=== PATIENT | female | born 1970 | race Caucasian/White ===

== ENCOUNTER 2019-01-27 14:19 | Outpatient (CLI) | payer OTHER | END 2019-01-27 16:19 | disposition home or self-care (01) | LOC: ECT 14:19 | DX: F33.2 Major depressive disorder, recurrent severe without psychotic features (principal); F41.9 Anxiety disorder, unspecified; E03.9 Hypothyroidism, unspecified; J30.9 Allergic rhinitis, unspecified; Z79.899 Other long term (current) drug therapy; Z81.8 Family history of other mental and behavioral disorders; Z91.5 Personal history of self-harm ==

== ENCOUNTER 2019-01-30 04:34 | Outpatient (RCR) | payer OTHER ==
[~2019-01-30] VITALS: Ht 162.6 cm; Wt 64.4 kg
[2019-01-30] MEDS ORDERED: NS 500ML ONE (04:35)
[2019-01-30] MEDS ORDERED: Methohexital Sodium Syr 100mg/10ml IVP ONE (04:35)
[2019-01-30] MEDS ORDERED: Succinylcholine 20mg/ml 10ml vial ONE (04:35)
[2019-02-06] MEDS ORDERED: NS 500ML ONE (06:00)
[2019-02-06] MEDS ORDERED: Methohexital Sodium Syr 100mg/10ml IVP ONE (06:00)
[2019-02-06] MEDS ORDERED: Succinylcholine 20mg/ml 10ml vial ONE (06:00)
[2019-02-06 09:09] VITALS: BP 114/78
[2019-02-06 09:20] VITALS: BP 119/67
[2019-02-06 09:25] VITALS: BP 124/78
[2019-02-06 09:30] VITALS: BP 128/67
[2019-02-06 09:35] VITALS: BP 130/58
[2019-02-06 09:58] VITALS: BP 114/78
[2019-02-09] MEDS ORDERED: NS 500ML ONE (06:00)
[2019-02-09] MEDS ORDERED: Methohexital Sodium Syr 100mg/10ml IVP ONE (06:00)
[2019-02-09] MEDS ORDERED: Succinylcholine 20mg/ml 10ml vial ONE (06:00)
[2019-02-09 09:27] VITALS: BP 113/74
[2019-02-09 09:40] VITALS: BP 119/63
[2019-02-09 09:45] VITALS: BP 128/69
[2019-02-09 09:50] VITALS: BP 133/83
[2019-02-09 09:55] VITALS: BP 128/71
[2019-02-11] MEDS ORDERED: Methohexital Sodium Syr 100mg/10ml IVP ONE (06:00)
[2019-02-11] MEDS ORDERED: Midazolam 2mg/2ml Inj ONE (06:00)
[2019-02-11] MEDS ORDERED: Succinylcholine 20mg/ml 10ml vial ONE (06:00)
[2019-02-11] MEDS ORDERED: NS 500ML ONE (06:00)
[2019-02-11 09:26] VITALS: BP 105/76
[2019-02-11 09:41] VITALS: BP 122/66
[2019-02-11 09:46] VITALS: BP 120/70
[2019-02-11 09:51] VITALS: BP 108/71
[2019-02-11 09:56] VITALS: BP 121/62
[2019-02-13 08:43] VITALS: BP 100/74
[2019-02-13 09:00] VITALS: BP 129/73
[2019-02-13 09:05] VITALS: BP 126/65
[2019-02-13 09:10] VITALS: BP 121/62
[2019-02-13 09:15] VITALS: BP 124/64
[2019-02-16] MEDS ORDERED: Methohexital Sodium Syr 100mg/10ml IVP ONE (06:00)
[2019-02-16] MEDS ORDERED: Succinylcholine 20mg/ml 10ml vial ONE (06:00)
[2019-02-16] MEDS ORDERED: NS 500ML ONE (06:00)
[2019-02-16 09:08] VITALS: BP 105/75
[2019-02-16 09:20] VITALS: BP 130/74
[2019-02-16 09:25] VITALS: BP 123/68
[2019-02-16 09:30] VITALS: BP 123/63
[2019-02-16 09:35] VITALS: BP 119/66
== END 2019-02-16 | disposition home or self-care (01) ==
LOC: ECT 04:34
DX: F33.2 Major depressive disorder, recurrent severe without psychotic features (principal)
CPT/HCPCS: 90870; J0330; J2250; J7040

== ENCOUNTER 2019-02-18 09:17 | Outpatient (RCR) | payer OTHER ==
[~2019-02-18] VITALS: Ht 162.6 cm; Wt 64.4 kg
[~2019-02-18 09:17] MED LIST: Methohexital Sodium Syr 100mg/10ml IVP ONE; NS 500ML ONE; Succinylcholine 20mg/ml 10ml vial ONE
[2019-02-18] MEDS ORDERED: Succinylcholine 20mg/ml 10ml vial ONE ×3 (09:18)
[2019-02-18] MEDS ORDERED: Methohexital Sodium Syr 100mg/10ml IVP ONE ×3 (09:18)
[2019-02-18] MEDS ORDERED: Midazolam 2mg/2ml Inj ONE (09:18)
[2019-02-18] MEDS ORDERED: NS 500ML ONE ×2 (09:18)
[2019-02-18 09:25] VITALS: BP 106/73
[2019-02-18 09:38] VITALS: BP 126/73
[2019-02-18 09:43] VITALS: BP 122/58
[2019-02-18 09:48] VITALS: BP 134/93
[2019-02-18 09:53] VITALS: BP 127/53
[2019-02-20 09:00] VITALS: BP 102/78
[2019-02-20] MEDS ORDERED: Succinylcholine 20mg/ml 10ml vial ONE (09:00)
[2019-02-20] MEDS ORDERED: Methohexital Sodium Syr 100mg/10ml IVP ONE (09:00)
[2019-02-20] MEDS ORDERED: NS 500ML ONE (09:00)
[2019-02-20] MEDS ORDERED: Midazolam 2mg/2ml Inj ONE (09:00)
[2019-02-20 09:15] VITALS: BP 122/66
[2019-02-20 09:20] VITALS: BP 113/72
[2019-02-20 09:25] VITALS: BP 121/69
[2019-02-20 09:30] VITALS: BP 116/69
[2019-02-23 11:00] VITALS: BP 100/72
[2019-02-23 11:25] VITALS: BP 124/72
[2019-02-23 11:30] VITALS: BP 116/64
[2019-02-23 11:35] VITALS: BP 117/65
[2019-02-23 11:40] VITALS: BP 108/62
[2019-02-25 09:44] VITALS: BP 114/79
[2019-02-25 09:56] VITALS: BP 123/76
[2019-02-25 10:01] VITALS: BP 121/64
[2019-02-25 10:06] VITALS: BP 109/63
[2019-02-25 10:11] VITALS: BP 119/65
[2019-02-27 09:51] VITALS: BP 103/75
[2019-02-27 10:05] VITALS: BP 121/67
[2019-02-27 10:10] VITALS: BP 117/61
[2019-02-27 10:15] VITALS: BP 115/61
[2019-02-27 10:20] VITALS: BP 115/60
[2019-03-04] MEDS ORDERED: NS 500ML ONE (09:00)
[2019-03-04] MEDS ORDERED: Succinylcholine 20mg/ml 10ml vial ONE (09:00)
[2019-03-04] MEDS ORDERED: Methohexital Sodium Syr 100mg/10ml IVP ONE (09:00)
[2019-03-04 10:00] VITALS: BP 99/73
[2019-03-04 10:15] VITALS: BP 100/79
[2019-03-04 10:20] VITALS: BP 128/69
[2019-03-04 10:25] VITALS: BP 118/70
[2019-03-04 10:30] VITALS: BP 118/61
[2019-03-18] MEDS ORDERED: Succinylcholine 20mg/ml 10ml vial ONE (06:00)
[2019-03-18] MEDS ORDERED: NS 500ML ONE (06:00)
[2019-03-18] MEDS ORDERED: Methohexital Sodium Syr 100mg/10ml IVP ONE (06:00)
[2019-03-18 09:31] VITALS: BP 104/68
[2019-03-18 09:49] VITALS: BP 112/67
[2019-03-18 09:54] VITALS: BP 121/65
[2019-03-18 09:59] VITALS: BP 122/62
[2019-03-18 10:04] VITALS: BP 114/63
== END 2019-03-19 | disposition home or self-care (01) ==
LOC: ECT 09:17
DX: F33.2 Major depressive disorder, recurrent severe without psychotic features (principal)
CPT/HCPCS: 90870; J0330; J2250; J7040

== ENCOUNTER 2019-03-30 08:07 | Outpatient (RCR) | payer OTHER ==
[~2019-03-30] VITALS: Ht 162.6 cm; Wt 64.4 kg
[2019-03-30] MEDS ORDERED: Methohexital Sodium Syr 100mg/10ml IVP ONE (08:08)
[2019-03-30] MEDS ORDERED: Succinylcholine 20mg/ml 10ml vial ONE (08:08)
[2019-03-30] MEDS ORDERED: NS 500ML ONE (08:08)
[2019-04-01] MEDS ORDERED: Succinylcholine 20mg/ml 10ml vial ONE (06:00)
[2019-04-01] MEDS ORDERED: Methohexital Sodium Syr 100mg/10ml IVP ONE (06:00)
[2019-04-01] MEDS ORDERED: NS 500ML ONE (06:00)
[2019-04-01 10:19] VITALS: BP 114/81
[2019-04-01 10:35] VITALS: BP 128/64
[2019-04-01 10:40] VITALS: BP 124/80
[2019-04-01 10:45] VITALS: BP 128/59
[2019-04-01 10:50] VITALS: BP 122/68
[2019-04-08] MEDS ORDERED: NS 500ML ONE (06:00)
[2019-04-08] MEDS ORDERED: Succinylcholine 20mg/ml 10ml vial ONE (06:00)
[2019-04-08] MEDS ORDERED: Methohexital Sodium Syr 100mg/10ml IVP ONE (06:00)
[2019-04-08 10:51] VITALS: BP 122/78
[2019-04-08 11:05] VITALS: BP 132/64
[2019-04-08 11:10] VITALS: BP 133/70
[2019-04-08 11:15] VITALS: BP 120/67
[2019-04-08 11:20] VITALS: BP 119/60
[2019-04-10] MEDS ORDERED: NS 500ML ONE (06:00)
[2019-04-10] MEDS ORDERED: Succinylcholine 20mg/ml 10ml vial ONE (06:00)
[2019-04-10] MEDS ORDERED: Methohexital Sodium Syr 100mg/10ml IVP ONE (06:00)
[2019-04-10 10:33] VITALS: BP 117/83
[2019-04-10 10:47] VITALS: BP 126/81
[2019-04-10 10:52] VITALS: BP 124/72
[2019-04-10 10:57] VITALS: BP 120/79
[2019-04-10 11:02] VITALS: BP 117/71
[2019-04-13] MEDS ORDERED: Succinylcholine 20mg/ml 10ml vial ONE (06:00)
[2019-04-13] MEDS ORDERED: NS 500ML ONE (06:00)
[2019-04-13] MEDS ORDERED: Methohexital Sodium Syr 100mg/10ml IVP ONE (06:00)
[2019-04-13 09:34] VITALS: BP 112/81
[2019-04-13 09:55] VITALS: BP 129/70
[2019-04-13 10:00] VITALS: BP 125/81
[2019-04-13 10:05] VITALS: BP 127/71
[2019-04-13 10:10] VITALS: BP 128/72
[2019-04-15 10:20] VITALS: BP 112/82
[2019-04-15 10:35] VITALS: BP 126/84
[2019-04-15 10:40] VITALS: BP 126/69
[2019-04-15 10:45] VITALS: BP 125/69
[2019-04-15 10:50] VITALS: BP 122/70
== END 2019-04-18 | disposition home or self-care (01) ==
LOC: ECT 08:07
DX: F33.2 Major depressive disorder, recurrent severe without psychotic features (principal)
CPT/HCPCS: 90870; J0330; J7040

== ENCOUNTER 2019-04-20 05:55 | Outpatient (RCR) | payer OTHER ==
[~2019-04-20] VITALS: Ht 162.6 cm; Wt 64.4 kg
[2019-04-20] MEDS ORDERED: Methohexital Sodium Syr 100mg/10ml IVP ONE ×3 (05:56)
[2019-04-20] MEDS ORDERED: Succinylcholine 20mg/ml 10ml vial ONE ×3 (05:56)
[2019-04-20] MEDS ORDERED: NS 500ML ONE ×3 (05:56)
[2019-04-20 10:35] VITALS: BP 124/64
[2019-04-20 10:48] VITALS: BP 143/84
[2019-04-20 10:53] VITALS: BP 144/79
[2019-04-20 10:58] VITALS: BP 125/67
[2019-04-20 11:03] VITALS: BP 131/67
[2019-04-24] MEDS ORDERED: Methohexital Sodium Syr 100mg/10ml IVP ONE (06:00)
[2019-04-24] MEDS ORDERED: Succinylcholine 20mg/ml 10ml vial ONE (06:00)
[2019-04-24] MEDS ORDERED: NS 500ML ONE (06:00)
[2019-04-24 09:23] VITALS: BP 119/80
[2019-04-24 09:35] VITALS: BP 118/75
[2019-04-24 09:40] VITALS: BP 114/72
[2019-04-24 09:45] VITALS: BP 126/76
[2019-04-24 09:50] VITALS: BP 124/73
[2019-05-01 10:16] VITALS: BP 118/87
[2019-05-01 10:30] VITALS: BP 129/62
[2019-05-01 10:35] VITALS: BP 107/61
[2019-05-01 10:40] VITALS: BP 121/68
[2019-05-01 10:45] VITALS: BP 117/65
[2019-05-11 11:16] VITALS: BP 129/90
[2019-05-11 11:30] VITALS: BP 131/76
[2019-05-11 11:35] VITALS: BP 121/82
[2019-05-11 11:40] VITALS: BP 129/79
[2019-05-11 11:45] VITALS: BP 128/69
== END 2019-05-19 | disposition home or self-care (01) ==
LOC: ECT 05:55
DX: F33.2 Major depressive disorder, recurrent severe without psychotic features (principal)
CPT/HCPCS: 90870